=== PATIENT | female | born 1975 | race African-American/Black ===

== ENCOUNTER 2020-04-14 03:11 | Emergency (ER) | payer MEDICAID ==
[~2020-04-14] VITALS: Ht 170.2 cm; Wt 101.2 kg
[2020-04-14 03:22] VITALS: Ht 170.2 cm; Wt 101.2 kg
[2020-04-14 04:49] LABS: microscopic required? YES; urine erythrocyte TRACE (NEGATIVE)
[2020-04-14 06:28] VITALS: BP 141/71
== END 2020-04-14 06:22 | disposition home or self-care (01) ==
LOC: ED 03:11
PROVIDERS: Emergency Medicine
DX: N39.0 Urinary tract infection, site not specified (principal); Z88.1 Allergy status to other antibiotic agents
CPT/HCPCS: J1885